=== PATIENT | female | born 1990 | race Two or more races ===

== ENCOUNTER 2021-06-09 10:32 | Emergency (ER) | payer SELFPAY ==
--- NOTE | 2021-06-09 10:38 | EDM.PDOC ---
ED HPI GENERAL MEDICAL PROBLEM - General Chief Complaint: Skin Complaint Stated Complaint: HIVES Time Seen by Provider: 06/09/21 10:34 Source of Information: Reports: Patient History Limitations: Reports: No Limitations - History of Present Illness INITIAL COMMENTS - FREE TEXT/NARRATIVE: 31-year-old female presents for diffuse body rash. Patient is noted symptoms worsening over the last 5 days. She notes that she was sleeping with her new dog and symptoms started on her left arm her dog was sleeping by her and then spread to chest, abdomen, back. She also notes a rash worsening over the last week in her bilateral ears left greater than right that occurred after being in a hot tub in [place]. - Related Data Allergies Allergy/AdvReac Type Severity Reaction Status Date / Time No Known Allergies Allergy Verified 06/09/21 10:49 Home Meds: Home Meds . [No Known Home Meds] 06/09/21 [History] Amoxicillin/Potassium Clav [Augmentin 875-125 Tablet] 1 each PO BID 10 Days #20 tablet 06/09/21 [Rx] Mupirocin Cream [Bactroban Crm] 30 gm TOP Q8H 5 Days #30 gm 06/09/21 [Rx] predniSONE 40 mg PO DAILY 5 Days #10 tab 06/09/21 [Rx] ED ROS GENERAL - Review of Systems Review Of Systems: Comprehensive ROS is negative, except as noted in HPI. ED EXAM, SKIN/RASH Exam: See Below Exam Limited By: No Limitations General Appearance: Alert, WD/WN, No Apparent Distress Ears: Hearing Grossly Normal Throat/Mouth: Normal Voice, No Airway Compromise Head: Atraumatic, Normocephalic Respiratory/Chest: No Respiratory Distress, Lungs Clear, Normal Breath Sounds, No Accessory Muscle Use Cardiovascular: Normal Peripheral Pulses, Regular Rate, Rhythm Extremities: Normal Inspection Neurological: Alert, Normal Cognition, Normal Gait Psychiatric: Normal Affect, Normal Mood Skin: Warm, Dry, Intact, Normal Color, Other (urticarial rash most prominent on LUE, chest, abdomen, and back) Location, Skin: Other (rash of b/l ears consistent with impetigo, honey-crusting lesions, L>R) Course - Vital Signs Last Recorded V/S: Last Vital Signs Temp 98 F 06/09/21 10:44 Pulse 79 06/09/21 10:44 Resp 18 06/09/21 10:44 BP 118/77 06/09/21 10:44 Pulse Ox 97 06/09/21 10:44 - Re-Assessments/Exams Free Text/Narrative Re-Assessment/Exam: 06/09/21 10:52 Patient's ear rash is concerning for impetigo. It does not seem to involve the external auditory canal or TM but the entire pinna is covered in honey crusting lesions. Considering the severity will discharge with Augmentin. We will also give mupirocin topical. The rash on the arm, chest, abdomen is different in appearance and more consistent with urticarial rash. Prednisone prescribed. I did recommend dermatology follow-up information is provided to patient. Departure - Departure Time of Disposition: 10:48 Disposition: Home, Self-Care 01 Condition: Good Clinical Impression: Impetigo, Hives - Discharge Information Prescriptions: Amoxicillin/Potassium Clav [Augmentin 875-125 Tablet] 1 each PO BID 10 Days #20 tablet Mupirocin Cream [Bactroban Crm] 30 gm TOP Q8H 5 Days #30 gm predniSONE 40 mg PO DAILY 5 Days #10 tab Instructions: Rash, Adult, Impetigo, Adult Referrals: PCP,None [Primary Care Provider] - Forms: ED Department Discharge Additional Instructions: You were seen in the emergency department for a rash. Prescription medication was sent to [place] pharmacy which can help with your symptoms. For more definitive work-up you should follow-up with a newspaper manager. They may want to do a biopsy. You were provided with information for Dr. Boris Perez. His information is also provided below. Dr. Boris Perez, [facility] [address], [address] [place] [id number] [email or web address] [phone] You do appear to have a superimposed bacterial infection on your left ear. This is called impetigo. It is quite significant so I will prescribe both a cream and an oral antibiotic. The following information is given to patients seen in the emergency department who are being discharged to home. This information is to outline your options for follow-up care. We provide all patients seen in our emergency department with a follow-up referral. The need for follow-up, as well as the timing and circumstances, are variable depending upon the specifics of your emergency department visit. If you don't have a primary care physician on staff, we will provide you with a referral. We always advise you to contact your personal physician following an emergency department visit to inform them of the circumstance of the visit and for follow-up with them and/or the need for any referrals to a consulting specialist. The emergency department will also refer you to a specialist when appropriate. This referral assures that you have the opportunity for follow-up care with a specialist. All of these measure are taken in an effort to provide you with optimal care, which includes your follow-up. Under all circumstances we always encourage you to contact your private physician who remains a resource for coordinating your care. When calling for follow-up care, please make the office aware that this follow-up is from your recent emergency room visit. If for any reason you are refused follow-up, please contact the [facility] Emergency Department at and asked to speak to the emergency department charge nurse. Please follow up with your primary care physician. If you do not have a primary care physician, see below: [facility] [address] [place] [address] [id number] [facility] [address] [place] [address] [facility] [address] [place] [id number] Sepsis Event Note (ED) - Focused Exam Vital Signs: Vital Signs Temp Pulse Resp BP Pulse Ox 06/09/21 10:44 98 F 79 18 118/77 97
== END 2021-06-09 11:12 | disposition home or self-care (01) ==
LOC: MW.ED 10:32
DX: L50.9 Urticaria, unspecified (principal); L01.00 Impetigo, unspecified
CPT/HCPCS: 99282

== ENCOUNTER 2021-09-24 17:38 | Emergency (ER) | payer SELFPAY ==
[2021-09-24 18:45] LABS: BLOOD UREA NITROGEN,BUN 13 mg/dL (7.0-18.0); CARBON DIOXIDE,CO2 25.3 mmol/L (21.0-32.0); CHLORIDE,CL 103 mmol/L (98-107); GLUCOSE RANDOM 102 mg/dL (74-106); POTASSIUM,K 3.7 mmol/L (3.5-5.1); SODIUM,NA 137 mmol/L (136-145)
== END 2021-09-24 18:55 ==
LOC: MW.ED 17:38
DX: R10.30 Lower abdominal pain, unspecified (principal); Y04.0XXA Assault by unarmed brawl or fight, initial encounter; Y92.512 Supermarket, store or market as the place of occurrence of the external cause
CPT/HCPCS: 36415; 80053; 81003; 81025; 85025; 99284

== ENCOUNTER 2021-10-03 04:03 | Emergency (ER) | payer SELFPAY | END 2021-10-03 04:59 | disposition home or self-care (01) | LOC: MW.ED 04:03 | DX: S20.212A Contusion of left front wall of thorax, initial encounter (principal); J06.9 Acute upper respiratory infection, unspecified; Y04.0XXA Assault by unarmed brawl or fight, initial encounter | CPT/HCPCS: 71046; 71046-26; 99283-25 ==

== ENCOUNTER 2022-12-21 15:20 | Emergency (ER) | payer SELFPAY | END 2022-12-21 16:14 | disposition home or self-care (01) | LOC: MW.ED 15:20 | DX: H65.92 Unspecified nonsuppurative otitis media, left ear (principal) | CPT/HCPCS: 99282; 99283 ==

== ENCOUNTER 2023-04-10 15:40 | Emergency (ER) | payer SELFPAY | END 2023-04-10 16:36 | disposition home or self-care (01) | LOC: MW.ED 15:40 | DX: H66.92 Otitis media, unspecified, left ear (principal) | CPT/HCPCS: 99282 ==

== ENCOUNTER 2024-01-30 21:15 | Emergency (ER) | payer OTHER | END 2024-01-30 21:47 | disposition home or self-care (01) | LOC: MW.ED 21:15 | DX: B34.9 Viral infection, unspecified (principal); Z75.8 Other problems related to medical facilities and other health care | CPT/HCPCS: 99282; 99283 ==

== ENCOUNTER 2024-02-06 15:30 | Emergency (ER) | payer OTHER | END 2024-02-06 17:17 | disposition home or self-care (01) | LOC: MW.ED 15:30 | DX: H66.92 Otitis media, unspecified, left ear (principal); Z75.8 Other problems related to medical facilities and other health care | CPT/HCPCS: 87651-QW; 99283 ==

== ENCOUNTER 2025-02-13 01:46 | Emergency (ER) | payer OTHER ==
[2025-02-13] MEDS: Lidocaine 4% Patch TOP ONE (02:03)
== END 2025-02-13 02:42 | disposition home or self-care (01) ==
LOC: MW.ED 01:46
DX: S20.212A Contusion of left front wall of thorax, initial encounter (principal); W19.XXXA Unspecified fall, initial encounter
CPT/HCPCS: 71101; 99283; A9270; 99282

== ENCOUNTER 2025-03-01 22:37 | Emergency (ER) | payer OTHER | END 2025-03-01 23:00 | disposition home or self-care (01) | LOC: MW.ED 22:37 | DX: L50.9 Urticaria, unspecified (principal) | CPT/HCPCS: 99282 ==

== ENCOUNTER 2025-06-26 21:54 | Emergency (ER) | payer OTHER ==
[2025-06-26 22:18] LABS: APPEARANCE,URINE CLEAR; GLUCOSE,URINE NEGATIVE (NEGATIVE); OCCULT BLOOD,URINE NEGATIVE (NEGATIVE)
[2025-06-26 22:24] LABS: EPITHELIAL CELLS,URINE RARE (NONE-FEW)
[2025-06-26] MEDS: Ondansetron 4 MG Tab.DIS PO ONE (23:40)
[2025-06-26 23:57] LABS: C. TRACHOMATIS BY PCR NOT DETECTED; N. GONORRHOEAE BY PCR NOT DETECTED
== END 2025-06-26 23:49 | disposition home or self-care (01) ==
LOC: MW.ED 21:54
DX: N89.8 Other specified noninflammatory disorders of vagina (principal); Z75.3 Unavailability and inaccessibility of health-care facilities
CPT/HCPCS: 81001; 81025; 87491; 87591; 96372; 99283; A9270; J0696; J2003; Q0144